=== PATIENT | male | born 1960 | race Caucasian/White ===

== ENCOUNTER → 2017-07-27 | Outpatient (CLI) | payer OTHER | LOC: PREOP 05:39 | PROVIDERS: ATTEND Surgery | DX: Z01.818 Encounter for other preprocedural examination (principal); K62.5 Hemorrhage of anus and rectum; K64.9 Unspecified hemorrhoids ==

== ENCOUNTER 2017-08-10 05:40 | Outpatient (CLI) | payer OTHER ==
[~2017-08-10] VITALS: Ht 177.8 cm; Wt 88.5 kg
[2017-08-12] MEDS ORDERED: OXYC-197 PO (09:48)
== END 2017-08-10 09:55 ==
LOC: PREOP 05:40
PROVIDERS: ATTEND Surgery
DX: Z01.818 Encounter for other preprocedural examination (principal); K64.9 Unspecified hemorrhoids

== ENCOUNTER 2017-08-12 06:58 | Day surgery (SDC) | payer OTHER ==
[~2017-08-12] VITALS: Ht 177.8 cm; Wt 88.5 kg
[2017-08-12] MEDS ORDERED: LIDOCAINE/EPI 1%-1:200,000 (XYLOCAINE) 10 ML VIAL ONE (07:09)
[2017-08-12] MEDS ORDERED: BUPIVACAINE 0.5% 30 ML (SENSORCAINE) VIAL ONE (07:09)
[2017-08-12 07:15] VITALS: BP 133/84
[2017-08-12] MEDS: LACTATED RINGERS 1,000 ML IV PRN ×2 (07:30→08:40)
[2017-08-12] MEDS ORDERED: ceFAZolin INJECTION 1,000 MG in NS (IVPB) 50 ML IV ONE (07:45)
[2017-08-12] MEDS ORDERED: ceFAZolin 1 GM/NS 50 ML IVPB IV ONE ×2 (07:45)
[2017-08-12] MEDS ORDERED: MIDAZOLAM 2 MG/2 ML (VERSED) VIAL ONE (07:51)
[2017-08-12] MEDS ORDERED: fentaNYL INJECTION 100 MCG/2 ML AMP ONE (07:51)
--- NOTE | 2017-08-12 07:56 | Progress Note-Pre Operative ---
Pre-Operative Progress Note H&P Reviewed The H&P was reviewed, patient examined and no changes noted. Date Seen by Provider: Aug 12, 2017 Time Seen by Provider: 07:50 Date H&P Reviewed: Aug 12, 2017 Time H&P Reviewed: 07:55 Pre-Operative Diagnosis: Symptomatic Chronic Stage III external and Internal Hemorrhoids JOSÉ LUIS UPTON APRN Aug 12, 2017 7:56 am
[2017-08-12] MEDS ORDERED: ONDANSETRON 4 MG/2 ML (SDV) Z0FRAN ONE (08:37)
[2017-08-12] MEDS ORDERED: LIDOCAINE PF 2% 5 ML (XYLOCAINE) VIAL ONE (08:37)
[2017-08-12] MEDS ORDERED: SEVOFLURANE (ULTANE) 15 ML INHAL SOLN ONE ×3 (08:37→09:33)
[2017-08-12] MEDS ORDERED: DEXAMETHASONE 10 MG/ML (DECADRON) 1 ML VIAL ONE (08:37)
[2017-08-12] MEDS ORDERED: proPOfol 200 MG/20 ML (DIPRIVAN) VIAL IV ONE (08:37)
--- NOTE | 2017-08-12 09:46 | Progress Note-Post Operative ---
Post-Operative Progess Note Surgeon (s)/Technology Development Intern (s) Surgeon HUMPHREY CRISTOBAL MD Technology Development Intern: tim castañeda APRN Pre-Operative Diagnosis Symptomatic Chronic Stage III external and Internal Hemorrhoids Post-Operative Diagnosis same Procedure & Operative Findings Date of Procedure 08/12/17 Procedure Performed/Findings hemorrhoidectomy. Anesthesia Type GET Estimated Blood Loss Estimated blood loss (mL): minimal Specimens/Packing Specimens Removed hemorrhoidal cushions x3 HUMPHREY CRISTOBAL MD Aug 12, 2017 9:46 am
[2017-08-12] MEDS ORDERED: OXYC-197 PO (09:48)
--- NOTE | 2017-08-12 09:49 | Discharge Inst-Surgical ---
D/C Lap Instructions-SUSU New, Converted, or Re-Newed RX: RX on Chart Follow Up Appt in 2 weeks Activity as tolerated Regular Diet, add stool softeners and fiber as needed to promote soft BM's daily. Sitz bath QID and after BM's. Symptoms to Report: Fever over 101 degree F, Nausea/Vomiting Infection Signs and Symptoms to report: Increased redness, Foul odor of wound, Increased drainage Bathing instructions: May shower Operative Area Clean/Dry; Keep incision clean/dry If any problems/questions: Contact your physician or go to Emergency Room HUMPHREY CRISTOBAL MD Aug 12, 2017 9:49 am
[2017-08-12] MEDS ORDERED: HYDROmorphone (DILAUDID) 2 MG/ML VIAL IVP PRN (10:00)
[2017-08-12] MEDS ORDERED: ONDANSETRON 4 MG/2 ML (SDV) Z0FRAN IVP PRN ×2 (10:00)
[2017-08-12] MEDS ORDERED: morphine INJ 10 MG/ML 1ML (SYR OR VIAL) IVP PRN (10:00)
[2017-08-12] MEDS ORDERED: ACETAMINOPHEN 325 MG TABLET/CAPLET (TYLENOL) PO PRN (10:00)
[2017-08-12] MEDS: morphine INJ 10 MG/ML 1ML (SYR OR VIAL) IVP PRN ×2 (10:07→10:12)
[2017-08-12 10:35] VITALS: BP 137/86
[2017-08-12] MEDS: oxyCODONE/APAP 5/325MG (PERCOCET 5) TABLET PO PRN ×2 (10:48→11:46)
[2017-08-12] MEDS ORDERED: ONDA4TAB8 PO (11:00)
[2017-08-12 11:35] VITALS: BP 135/89
--- NOTE | 2017-08-12 15:28 | OPERATIVE REPORT ---
DATE OF SERVICE: 08/12/2017 ATTENDING PRIMARY CARE PHYSICIAN: Sourav Barnes MD. PREOPERATIVE DIAGNOSIS: Symptomatic stage III external and internal hemorrhoids. POSTOPERATIVE DIAGNOSIS: Symptomatic stage III external and internal hemorrhoids. PROCEDURE: Formal 3 cushion external and internal hemorrhoidectomy. SURGEON: Humphrey Cristobal MD. QUALITY CONTROL DIRECTOR: Alberto Harkins APRN. ANESTHESIA: General endotracheal. ESTIMATED BLOOD LOSS: Minimal. FINDINGS: Significant large prolapsed hemorrhoids consistent with stage III-IV. DISPOSITION: The patient tolerated the procedure well. INDICATIONS: The patient is a 57-year-old male with symptomatic hemorrhoids. He has had hemorrhoids for many years. 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 During this process, his stools were hard and this did require significant amount of straining upon defecation. During this timeframe, he did notice pain, swelling and symptomatic hemorrhoids. Over the years since he has finished the service, he has been able to eat healthier and his hemorrhoids did not bother him as frequently. In the past few years, his hemorrhoids have become significantly more symptomatic. He reports that with mild lifting or exertion, he has hemorrhoidal prolapse as well as irritation and bleeding. He has also had an episode of thrombosed external hemorrhoids. His last colonoscopy was 3 years ago and he believes this to be normal. Upon examination, he did have a stage III external and internal hemorrhoids identified in the office. Upon examination today, they are prolapsed and more consistent with stage III or stage IV. DESCRIPTION OF PROCEDURE: The patient was brought to the operating room, laid supine on the table. After adequate IV pain and sedative medications and general endotracheal intubation, the patient was placed in the lithotomy position and the perineum was prepped and draped in standard surgical fashion. A 0.5% Marcaine with epinephrine was then used to anesthetize the pudendal nerves causing relaxations via external and internal hemorrhoidal sphincters. A self-retaining speculum was placed and all 3 external and internal hemorrhoidal cushions were swollen. We then proceeded with a systematic formal excision of both external and internal hemorrhoids en-bloc. We first proceeded with placement of a 2-0 Vicryl suture via rectal mucosa for hemostatic control. We then proceeded with excision of both of the hemorrhoidal cushions using the Harmonic scalpel with visualization of good hemostasis. Using the stay suture, we then proceeded to close the mucosa and anoderm in a running fashion. We then proceeded with excision of the other 2 large hemorrhoidal cushions in a similar manner. No stricture was identified and 2 fingerbreadths were intubated without any difficulty. Good hemostasis was also observed. A hemostatic plug with Gelfoam wrapped with Surgicel and Surgilube were then placed into the anal canal. The patient tolerated the procedure well. We will start IV and oral pain medication as well as a clear liquid diet. Once he is tolerating clears and has good pain control with oral pain medications and ambulating well, we will discharge him home. We will also have him proceed with the necessary aftercare including Sitz baths q.i.d. as well as after every bowel movement, stool softeners as well as fiber supplementation as well as laxatives as necessary to promote very soft stools. He will also need pain medications as necessary. He will also have drainage and need to apply a gauze dressing on a p.r.n. basis. Job ID: [id number] DocumentID: [id number] Dictated Date: 08/12/2017 10:05:14 School Bus Driver Date: 08/12/2017 15:27:39 Dictated By: HUMPHREY CRISTOBAL MD [facility]
== END 2017-08-12 12:45 | disposition home or self-care (01) ==
LOC: SDC 06:58
PROVIDERS: ATTEND Surgery
DX: K64.2 Third degree hemorrhoids (principal)
CPT/HCPCS: 87081; 88304

== ENCOUNTER → 2021-01-15 | Outpatient (CLI) | payer OTHER ==
[~2021-01-15] VITALS: Ht 180.3 cm; Wt 86.3 kg
[~2021-01-15] MED LIST: ONDA4TAB8 PO; OXYC1TAB87 PO
== END | disposition home or self-care (01) ==
LOC: PREOP 11:39
PROVIDERS: ATTEND Internal Medicine
DX: Z01.818 Encounter for other preprocedural examination (principal)

== ENCOUNTER 2021-01-24 07:27 | Day surgery (SDC) | payer OTHER ==
--- NOTE | 2021-01-16 07:17 | HISTORY AND PHYSICAL ---
DATE OF SERVICE: COLONOSCOPY HISTORY AND PHYSICAL HISTORY OF PRESENT ILLNESS: The patient is a 60-year-old white male seen for yearly wellness evaluation. It has been 10 years since his last screening colonoscopy, at which time, there is reported redundancy of the colon, but no evidence for neoplasia. He reports that he has been feeling well. He works as a fabricator and states that he did miss COVID vaccination, which was strongly recommended after discussion. 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 There have been no changes in family history. He is the only child. His mother of liver cancer and I do not know if this is really primary or metastatic disease at the age of 92 and father of lung cancer, was a smoker in her 70s. SOCIAL HISTORY: The patient has rare alcoholic intake, small volume and does have a [id number] smoking history, but quit roughly 20 years ago. PHYSICAL EXAMINATION: GENERAL: Reveals a white male, who appeared to be in no acute distress. He is muscular. Weight is stable from a year ago at 192. VITAL SIGNS: Blood pressure 110/80. HEENT: Unremarkable. NECK: Revealed no JVD, adenopathy, bruits or thyroid abnormality to palpation. CHEST: Clear to auscultation. CARDIOVASCULAR: Reveals a regular rate and rhythm without murmur, S3 or S4. ABDOMEN: Soft, supple without mass or organomegaly. EXTREMITIES: Reveal no cyanosis, clubbing or edema. SKIN: Evaluation revealed no suspicious nevi. ASSESSMENT AND PLAN: Unremarkable well male evaluation. The patient is being set up for screening colonoscopy and we will perform digital evaluation of the prostate at that time. Prep instructions with Suprep kit were given and questions were answered. As noted above, COVID vaccination strongly recommended. The patient is agreeable. We did obtain a chemistry panel, lipid panel and screening PSA today after discussion. We will see him back for yearly wellness evaluation. Job ID: [id number] DocumentID: [id number] Dictated Date: 12/30/2020 09:56:23 Nurse Date: 12/30/2020 10:40:41 Dictated By: ZOIN BALBUENA MD
[~2021-01-24] VITALS: Ht 180.3 cm; Wt 86.3 kg
[2021-01-24] MEDS ORDERED: LACTATED RINGERS 1,000 ML IV STA (07:33)
[2021-01-24] MEDS ORDERED: LACTATED RINGERS 1,000 ML IV ONE (07:35)
[2021-01-24] MEDS ORDERED: PROPOFOL INJECTION 50 ML IV ONE (07:44)
[2021-01-24] MEDS ORDERED: MIDAZOLAM 2 MG/2 ML (VERSED) VIAL ONE (07:44)
[2021-01-24 07:45] VITALS: BP 130/77
[2021-01-24] MEDS ORDERED: LIDOCAINE JELLY 2% 6 ML SYRINGE MM PRN (07:45)
--- NOTE | 2021-01-24 08:00 | Pre-Op Note & Conscious Sedat ---
Pre-Operative Progress Note H&P Reviewed The H&P was reviewed, patient examined and no changes noted. Date H&P Reviewed: Jan 24, 2021 Time H&P Reviewed: 07:40 Conscious Sedation Pre-Proced ASA Score 1 For ASA 3 and 4: Consider anesthesia and medical clearance. Also, for patients with a history of failed moderate sedation consider anesthesia. Airway Lungs Heart ASA score ASA 1: a normal healthy patient ASA 2: a patient with a mild systemic disease (mid diabetes, controlled hypertension, obesity ASA 3: a patient with a severe systemic disease that limits activity (angina, COPD, prior Myocardial infarction) ASA 4: a patient with an incapacitating disease that is a constant threat to life (CHF, renal failure) ASA 5: a moribund patient not expected to survive 24 hrs. (ruptured aneurysm) ASA 6: a declared brain- patient whose organs are being harvested. For emergent operations, add the letter E after the classification Mallampati Classification Grade 2 Sedation Plan Analgesia, Amnesia, Plan communicated to team members, Discussed options with patient/fam, Discussed risks with patient/fam The patient is an appropriate candidate to undergo the planned procedure, sedation, and anesthesia. The patient immediately re-assessed prior to indication. ZION BALBUENA MD Jan 24, 2021 08:00
[2021-01-24 08:30] VITALS: BP 106/57
[2021-01-24 08:35] VITALS: BP 114/64
[2021-01-24 08:40] VITALS: BP 108/60
[2021-01-24 09:00] VITALS: BP 136/89
[2021-01-24 09:10] VITALS: BP 136/89
--- NOTE | 2021-01-24 10:54 | Anesthesia-General Post-Op ---
MAC Patient Condition Mental Status/LOC: Same as Preop Cardiovascular: Satisfactory Nausea/Vomiting: Absent Respiratory: Satisfactory Pain: Controlled Complications: Absent Post Op Complications Complications None Follow Up Care/Instructions Patient Instructions None needed. Anesthesiology Discharge Order Discharge Order Patient is doing well, no complaints, stable vital signs, no apparent adverse anesthesia problems. No complications reported per nursing. MICHAEL VAUGHN CRNA Jan 24, 2021 10:54
--- NOTE | 2021-01-24 15:00 | OPERATIVE REPORT ---
DATE OF SERVICE: COLONOSCOPY SUMMARY INDICATION FOR THE PROCEDURE: Screening colonoscopy. PRIMARY CARE PROVIDER: Zion Balbuena MD. DESCRIPTION OF PROCEDURE: The patient was placed in the left lateral decubitus position. Prior to undergoing colonoscopy, digital rectal evaluation was performed. Anal sphincter tone was normal and the perianal reflexes intact. Prostate is mildly enlarged and anodular to digital inspection. No abnormalities were noted on digital inspection of anal canal or distal rectal vault. The colonoscope was then inserted into the rectum and under direct visualization advanced to cecum. The cecum was identified by identification of the ileocecal valve and cecal strap. Photographic documentation was obtained. Quality of prep was fair. FINDINGS: There was no evidence for internal or external hemorrhoids and the rectum was unremarkable. Present in the distal sigmoid colon was a sessile 3 mm erythematous polyp. It was photographed and biopsied and ablated with no subsequent blood loss. No evidence for sigmoid diverticular disease was noted. The descending colon and splenic flexure were unremarkable. Present in the proximal transverse colon was a 4 mm sessile polyp. It was photographed, biopsied and ablated also with no blood loss. The hepatic flexure, ascending colon and cecum were unremarkable. ASSESSMENT: Two diminutive polyps were removed via hot forceps, one from the distal sigmoid colon and the other from the proximal transverse colon with otherwise normal colonoscopy to the cecum. Digital evaluation of the prostate was compatible with mild BPH. We will await histopathology report before advocating future surveillance colonoscopic interval. Job ID: [id number] DocumentID: [id number] Dictated Date: 01/24/2021 08:40:05 Program Aide Date: 01/24/2021 15:00:02 Dictated By: ZION BALBUENA MD
== END 2021-01-24 09:10 | disposition home or self-care (01) ==
LOC: ENDO 07:27
PROVIDERS: ATTEND Internal Medicine
DX: Z12.11 Encounter for screening for malignant neoplasm of colon (principal); D12.3 Benign neoplasm of transverse colon; K63.5 Polyp of colon; Z79.899 Other long term (current) drug therapy; Z87.891 Personal history of nicotine dependence

== ENCOUNTER → 2021-07-14 | Outpatient (CLI) | payer OTHER | LOC: LABNPT 08:38 | PROVIDERS: ATTEND Internal Medicine | DX: U07.1 COVID-19 (principal) | CPT/HCPCS: 87636 ==

== ENCOUNTER 2021-07-17 09:04 | Outpatient (CLI) | payer OTHER ==
[~2021-07-17] VITALS: Ht 180 cm; Wt 88.6 kg
[2021-07-17 09:00] VITALS: BP 182/88
[2021-07-17] MEDS ORDERED: CASIRIVIMAB/IMDEVIMAB 1,200 MG in NS (IVPB) 250 ML IV ONE (09:15)
[2021-07-17] MEDS ORDERED: diphenhydrAMINE 50 MG/ML INJ (BENADRYL) IV PRN (09:15)
[2021-07-17] MEDS ORDERED: ACETAMINOPHEN 500 MG TAB (TYLENOL) PO PRN (09:15)
[2021-07-17] MEDS ORDERED: ONDANSETRON 4 MG/2 ML (SDV) Z0FRAN IV PRN (09:15)
[2021-07-17] MEDS ORDERED: EPINEPHrine INJECTION 1 MG/ML AMP IM PRN (09:15)
[2021-07-17 09:20] VITALS: BP 182/88
[2021-07-17 10:40] VITALS: BP 138/74
== END 2021-07-17 10:40 | disposition home or self-care (01) ==
LOC: INFUSION 09:04
PROVIDERS: ATTEND Nurse Practitioner Family
DX: U07.1 COVID-19 (principal)

== ENCOUNTER → 2021-08-11 | Outpatient (CLI) | payer OTHER | LOC: LABNPT 08:15 | PROVIDERS: ATTEND Internal Medicine | DX: Z20.822 Contact with and (suspected) exposure to COVID-19 (principal) | CPT/HCPCS: 87636 ==

== ENCOUNTER → 2022-04-22 | Outpatient (CLI) | payer SELFPAY ==
--- NOTE | 2022-04-22 12:35 | Diagnostic Imaging Report ---
INDICATION: Hyperlipidemia. TECHNIQUE: CT coronary calcium score evaluation performed in the routine fashion with noncontrast images of the heart. FINDINGS: Raw data images demonstrate the visualized portions of the lung sewell to be clear; the entirety of the lungs are not included on this study. There are no appreciably enlarged nodes in the visualized portions of the mediastinum. There is a single calcified plaque in the LAD. Calcium score is as follows: Score of 0 for left main coronary artery, score of 3.3 for LAD, score of 0 for left circumflex coronary artery and right coronary artery. IMPRESSION: Cardiac calcium score was 3.3, for a single plaque in the LAD. Findings correspond to a minimal overall plaque burden. Dictated by: Dictated on workstation # [id number]
== END ==
LOC: RAD FS 11:03
PROVIDERS: ATTEND Internal Medicine
DX: E78.5 Hyperlipidemia, unspecified (principal)
CPT/HCPCS: 75571